=== PATIENT | female | born 2000 | race Hispanic/Latino ===

== ENCOUNTER 2019-10-28 11:39 | Outpatient (CLI) | payer OTHER ==
[2019-10-29 12:23] LABS: SARS-CoV-2 MS2 Positive; SARS-CoV-2 N Gene Negative; SARS-CoV-2 S Gene Negative; SARS-CoV-2 orf1ab Negative
== END 2019-10-28 11:40 | disposition home or self-care (01) ==
LOC: LABSCS 11:39
PROVIDERS: ATTEND Obstetrics & Gynecology
DX: Z01.812 Encounter for preprocedural laboratory examination (principal); Z11.59 Encounter for screening for other viral diseases
CPT/HCPCS: 87635; U0003

== ENCOUNTER 2019-10-31 09:58 | Inpatient (IN) | payer BC, OTHER ==
[2019-10-31] MEDS ORDERED: Bupivacaine 0.25% HCL 30 ML VIAL ONE (11:19)
[2019-10-31] MEDS ORDERED: Carboprost 250 MCG/ML AMP IM PRN (21:45)
[2019-10-31] MEDS ORDERED: Lidocaine 1% (PF) 30 ML VIAL SC PRN (21:45)
[2019-10-31] MEDS ORDERED: Diphenoxylate HCl/Atropine Tablet PO PRN ×2 (21:45)
[2019-10-31] MEDS ORDERED: Acetaminophen 500 MG TAB PO PRN (21:45)
[2019-10-31] MEDS ORDERED: HYDROcodone/Acetaminophen 5/325 mg Tablet PO PRN (21:45)
[2019-10-31] MEDS ORDERED: Ibuprofen 800 MG TAB PO PRN (21:45)
[2019-10-31] MEDS ORDERED: Ondansetron PF 4 MG/2 ML Vial IVP PRN (21:45)
[2019-10-31] MEDS ORDERED: Methylergonovine 0.2 MG/ML VIAL IM PRN (21:45)
[2019-10-31] MEDS ORDERED: NS w/ Oxytocin 10 units 500 ML IV SCH (21:45)
[2019-10-31] MEDS ORDERED: NS / Oxytocin 40 units/1000ml 1,000 ML IV PRN (21:45)
[2019-10-31] MEDS ORDERED: Promethazine HCl 25 MG/ML VIAL IM PRN (21:45)
[2019-10-31] MEDS ORDERED: Zolpidem Tartrate 5 MG TAB PO PRN (21:45)
[2019-10-31] MEDS ORDERED: Misoprostol 200 MCG TAB PR PRN (21:45)
[2019-10-31] MEDS ORDERED: hydrALAZINE 20 MG/ML VIAL SLOW IVP PRN (21:45)
[2019-10-31 22:10] VITALS: BMI 31.3
[2019-10-31] MEDS: Lactated Ringer's 1,000 ML IV SCH (22:30)
[2019-10-31] MEDS: Misoprostol 100 MCG TAB VAG SCH (22:33)
[2019-10-31 22:48] LABS: Hemoglobin 12.8 g/dL (12.0-16.0); Mean Corpuscular HGB CONC 34.9 g/dL (32.0-36.0); Mean Corpuscular Hemoglobin 34.4 pg (25.0-35.0); Mean Corpuscular Volume 98.5 fL (78.0-98.0); Mean Platelet Volume 11.4 fL (7.4-10.4); Platelet Count 138 thou/uL (130-400); RBC Distribution Width 11.8 % (11.5-14.5); Red Blood Cell (RBC) Count 3.73 mill/uL (4.00-5.20); White Blood Cell (WBC) Count 8.2 thou/uL (4.8-10.8)
[2019-10-31 23:25] LABS: HBSAg Index 0.15 S/CO (0-0.99); Hep B Surf Ag Non-Reactive S/CO (NonReactive); Syphilis Antibody Nonreactive (Nonreactive); Syphilis Antibody Index 0.04 S/CO (<1.00 Non-Reactive)
[2019-11-01] MEDS: Misoprostol 100 MCG TAB VAG SCH ×2 (01:31→17:10)
[2019-11-01] MEDS: Butorphanol Tartrate 1 MG/ML VIAL SLOW IVP PRN ×2 (05:54→07:05)
[2019-11-01] MEDS ORDERED: Fentanyl 4 mcg/Bup 0.1% Cadd 100 ML ONE (08:22)
[2019-11-01] MEDS: Lactated Ringer's 1,000 ML IV SCH ×2 (08:55→10:22)
--- NOTE | 2019-11-01 13:48 | PDOC.OPDEL ---
OB Operative/Delivery Note Delivery Dr/Surgeon: 0 Assist: . Pre-Delivery Diagnosis: medically indicated induction Procedure/Post Delivery Dx: operative vaginal delivery (outlet forcep assited for non reassurring fhrt...) Anesthesia: epidural - Findings A Sex: female - 1 min: 9 - 5 min: 9 - Additional Findings/Plan Placenta delivered: spontaneous Repaired Obstetrical Laceration: vaginal (left vaginal sidewll and second degree extension)
[2019-11-01] MEDS ORDERED: Adacel (T-DAP) 0.5 ML SYRINGE IM ONE (13:49)
[2019-11-01] MEDS ORDERED: hydrALAZINE 20 MG/ML VIAL SLOW IVP PRN (13:49)
[2019-11-01] MEDS ORDERED: Bisacodyl 10 MG SUPP PR PRN (13:49)
[2019-11-01] MEDS ORDERED: Milk Of Magnesia 30 ML UDCUP PO PRN (13:49)
[2019-11-01] MEDS ORDERED: Lanolin Ointment 7 GM TUBE TOP PRN (13:49)
[2019-11-01] MEDS ORDERED: Preparation H Ointment 28 GM TUBE PR PRN (13:49)
[2019-11-01] MEDS ORDERED: traMADol HCl 50 MG TAB PO PRN (13:49)
[2019-11-01] MEDS ORDERED: Benzocaine-Menthol 82.5 ML CAN TOP PRN (13:49)
[2019-11-01] MEDS ORDERED: NS / Oxytocin 40 units/1000ml 1,000 ML IV SCH (14:00)
[2019-11-01] MEDS: Ferrous Sulfate 325 MG TAB PO SCH (17:09)
[2019-11-01] MEDS: Ibuprofen 800 MG TAB PO SCH ×2 (21:42→21:55)
[2019-11-01] MEDS: Docusate Calcium (SURFAK) 240 MG CAP PO SCH (21:43)
[2019-11-02] MEDS: Ibuprofen 800 MG TAB PO SCH ×3 (06:06→21:15)
--- NOTE | 2019-11-02 07:00 | PDOC.PP ---
Post Progress Note Post Day #: 1 Subjective: No complaints this morning. No events overnight. Minimal lochia noted. PO intake tolerated: no Flatus: no Ambulation: no Vital Signs (12 hours) Temp Pulse Resp BP Pulse Ox 11/02/19 04:20 98.2 F 76 16 99/53 L 98 11/02/19 00:15 98.3 F 88 18 107/58 L 97 11/01/19 20:15 98.3 F 98 18 117/59 L 96 Weight Weight 80.286 kg - Physical Examination General: NAD Cardiovascular: RRR Respiratory: clear to auscultation bilaterally Abdominal: lochia, no distention, appropriately TTP Neurological: no gross focal deficits Psychiatric: A&Ox3, normal affect Result Diagrams: 10/31/19 22:21 Additional Labs: Post Labs Blood Type A POSITIVE 10/31/19 22:21 Hep Bs Antigen Non-Reactive S/CO (NonReactive) 10/31/19 22:21 - Assessment/Plan PPD#1 following outlet forcep assited vaginal delivery for non reassurring fhrt. Progressing with no concerns. . Discussed DC today vs tomorrow and pt prefers tomorrow.
[2019-11-02] MEDS: Ferrous Sulfate 325 MG TAB PO SCH ×2 (08:30→19:04)
[2019-11-02] MEDS: Docusate Calcium (SURFAK) 240 MG CAP PO SCH ×2 (08:34→21:15)
--- NOTE | 2019-11-03 06:39 | PDOC.PP ---
Post Progress Note Post Day #: 2 Subjective: Patient reports that she feels well, is ready to go home today. She has had some soreness in her vaginal area, minimal lochia. PO intake tolerated: yes Flatus: yes Ambulation: yes Vital Signs (12 hours) Temp Pulse Resp BP Pulse Ox 11/02/19 21:00 97.8 F 89 18 114/60 11/02/19 20:00 99 Weight Weight 80.286 kg - Physical Examination General: NAD Cardiovascular: no m/r/g, RRR Respiratory: clear to auscultation bilaterally, non-labored breathing Abdominal: + bowel sounds, no distention, appropriately TTP Fundus firm & at: level of umbilicus Extremities: negative homans (B) Skin: no rash Neurological: no gross focal deficits Psychiatric: A&Ox3, normal affect Result Diagrams: 10/31/19 22:21 Additional Labs: Post Labs Blood Type A POSITIVE 10/31/19 22:21 Hep Bs Antigen Non-Reactive S/CO (NonReactive) 10/31/19 22:21 (1) Outlet forceps delivery Code(s): O75.9 - COMPLICATION OF LABOR AND DELIVERY, UNSPECIFIED Status: Acute (2) Post term , 41 weeks Code(s): O48.0 - POST-TERM ; Z3A.41 - 41 WEEKS GESTATION OF Status: Acute (3) Term of female Code(s): Z37.0 - SINGLE LIVE Status: Acute - Assessment/Plan Patient is a 18 yo G1 now P1 female, PPD#2: Term , Delivered -PPD#2 following outlet forcep assisted vaginal delivery for NRFHT -continue routine care, ready to go home today -follow up scheduled with Dr. Reese -Ibuprofen Rx sent for outpatient pain control -provided discharge instruction Dispo: Stable, ready for discharge home later today once baby cleared by nursery.
[2019-11-03] MEDS: Ibuprofen 800 MG TAB PO SCH (06:41)
[2019-11-03] MEDS: Ferrous Sulfate 325 MG TAB PO SCH (08:20)
[2019-11-03 09:10] VITALS: BP 95/50; TEMP 98.4
[2019-11-03] MEDS: Docusate Calcium (SURFAK) 240 MG CAP PO SCH (09:10)
== END 2019-11-03 10:40 | disposition home or self-care (01) | DRG 807 ==
LOC: L&D 21:33 → 3SE 11-01 16:42 → 3SW 11-02 17:00
PROVIDERS: ADMIT Obstetrics & Gynecology; ATTEND Obstetrics & Gynecology
PROC: 10E0XZZ Delivery of Products of Conception, External Approach (ICD-10-PCS; principal; 2019-10-31)
PROC: 0KQM0ZZ Repair Perineum Muscle, Open Approach (ICD-10-PCS; 2019-10-31)
DX: O76 Abnormality in fetal heart rate and rhythm complicating labor and delivery (principal); Z37.0 Single live birth; O70.1 Second degree perineal laceration during delivery; Z3A.41 41 weeks gestation of pregnancy; O48.0 Post-term pregnancy
CPT/HCPCS: 36415; 85027; 86780; 86850; 86900; 86901; 87340; J0595; J2590; S0020